=== PATIENT | female | born 1965 | race Caucasian/White ===

== ENCOUNTER 2024-10-26 10:20 | Outpatient (CLI) | payer MEDICAID ==
--- NOTE | 2024-10-26 13:37 | RADIOLOGY REPORT ---
INDICATION: POSTMENOPAUSAL BLEEDING TECHNIQUE: Multiple real-time grayscale transabdominal sonographic images along with color and duplex Doppler of the uterus and ovaries were obtained. COMPARISON: None FINDINGS: The uterus measures 6.7 x 2.4 x 3.0 cm. The endometrial stripe measures 0.2 cm. Right ovary measures 1.7 x 1.6 x 1.3 cm with normal Doppler color flow Left ovary measures 1.7 x 0.9 x 1.2 cm with normal Doppler color flow Probable small uterine fibroids are present measuring 1.4 cm at the fundus and 0.5 cm in the lower ut erine segment. IMPRESSION: Probable small uterine fibroids are present measuring 1.4 cm at the fundus and 0.5 cm in the lower ut erine segment.
== END 2024-10-26 23:59 | disposition home or self-care (01) ==
LOC: RAD 10:20
PROVIDERS: ATTEND Student in an Organized Health Care Education/Training Program
DX: N95.0 Postmenopausal bleeding (principal)
CPT/HCPCS: 76830; 76856; 93976